=== PATIENT | male | born 1990 | race Two or more races ===

== ENCOUNTER 2019-03-23 17:00 | Emergency (ER) | payer MEDICAID ==
[~2019-03-23] VITALS: Ht 170.2 cm; Wt 82.0 kg
[2019-03-23 18:31] LABS: HEMATOCRIT. 40.5 % (42.0-52.0); HEMOGLOBIN. 14.1 g/dL (14.0-18.0); LYMPHOCYTES % 33.7 % (20.0-50.0); MEAN CORPUSCULAR HEMOGLOBIN 31.9 pg (28.0-32.0); MEAN CORPUSCULAR VOLUME 91.5 fL (80.0-94.0); MEAN PLATELET VOLUME 7.6 fl (7.4-10.4); MONOCYTES % 5.7 % (2.0-8.0); NEUTROPHILS % 56.6 % (40.0-76.0); PLATELET 273 x1000/uL (130-400); RED BLOOD CELL COUNT 4.43 mill/uL (4.7-6.1); RED CELL DISTRIBUTION WIDTH 13.2 % (11.6-14.6)
[2019-03-23 18:37] LABS: CHLORIDE 107 mEq/L (98-107)
[2019-03-23 19:09] VITALS: BP 120/70
== END 2019-03-23 19:18 | disposition home or self-care (01) ==
LOC: ER 19:17
DX: R00.2 Palpitations (principal); R42 Dizziness and giddiness; Z98.890 Other specified postprocedural states
CPT/HCPCS: 36415; 71045; 80048; 93005; 99284